=== PATIENT | female | born 1950 | race Caucasian/White ===

== ENCOUNTER → 2018-07-09 17:25 | Emergency (ER) | payer MEDICARE, OTHER ==
[~2018-07-09 17:25] MED LIST: Hydrochlorothiazide TAB* 25 MG PO ONE; cloNIDine TAB* 0.1 MG PO ONE
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
[2018-07-09 20:21] VITALS: BP 216/84
--- NOTE | 2018-07-10 07:55 | RAD ---
Indication: Right knee pain. 4 views of the right knee are reviewed. Degenerative changes of the patellofemoral joint is noted. Joint spaces all well-preserved. No fracture is noted. IMPRESSION: Unremarkable right knee. R0
--- NOTE | 2018-07-10 16:37 | RAD ---
Indication: Left knee pain. 4 views of left knee demonstrates no fracture or dislocation. No other bone or joint abnormalities identified. No abnormal effusion is noted. IMPRESSION: No fracture of the left knee is noted. R0
== END | disposition home or self-care (01) ==
LOC: ED 17:25
DX: M54.2 Cervicalgia (principal); M25.562 Pain in left knee; M25.561 Pain in right knee; R07.89 Other chest pain; M54.5 Low back pain; I10 Essential (primary) hypertension; Z87.891 Personal history of nicotine dependence
CPT/HCPCS: 71250; 72125; 99282; A9270-GY

== ENCOUNTER 2018-08-05 15:49 | Emergency (ER) | payer MEDICARE ==
[2018-08-05] MEDS ORDERED: NS 0.9% 1000 ML* 1,000 ML IV ONE (17:10)
[2018-08-05] MEDS ORDERED: Ondansetron ODT TAB* 4 MG PO ONE (17:10)
[2018-08-05 17:23] LABS: ABS Basophils 0.1 10^3/ul (0-0.2); ABS Eosinophils 0 10^3/ul (0-0.6); ABS Lymphocytes 1.6 10^3/ul (1.0-4.8); ABS Monocytes 1.4 10^3/ul (0-0.8); ABS Neutrophils 17.8 10^3/ul (1.5-7.7); ABS Nucleated RBC 0 10^3/ul; Eosinophil % 0 %; Hematocrit 36 % (35-47); Hemoglobin 12.2 g/dl (12.0-16.0); Lymphocyte % 7.5 %; Mean Corpuscular HGB Conc 34 g/dl (31-36); Mean Corpuscular Hemoglobin 32 pg (27-31); Mean Corpuscular Volume 93 fL (80-97); Mean Platelet Volume 8.3 fL (7.4-10.4); Nucleated Red Blood Cells % 0; Platelet Count 211 10^3/ul (150-450); Red Blood Count 3.88 10^6/ul (4.00-5.40); Red Cell Distribution Width 14 % (10.5-15); White Blood Count 20.8 10^3/ul (3.5-10.8)
[2018-08-05 17:46] LABS: EGFR Non-African American 41.7 (>60)
[2018-08-05] MEDS ORDERED: Iodixanol* (CONTRAST) 320 MG/ML 100 ML SDV IV ONE (19:22)
[2018-08-05 19:29] LABS: Urine Appearance Cloudy; Urine Blood 2+ (Negative); Urine Color Amber; Urine Ketones Negative (Negative); Urine Protein 1+(30 mg/dL) (Negative); Urine Red Blood Cell 3+(>10/hpf) (Absent); Urine Specific Gravity 1.018 (1.010-1.030); Urine Urobilinogen Negative (Negative); Urine White Blood Cell 3+(>20/hpf) (Absent)
[2018-08-05 20:52] VITALS: BP 157/60
[2018-08-05] MEDS ORDERED: Levofloxacin TAB* 250 MG PO ONE (20:58)
--- NOTE | 2018-08-05 20:58 | ED ---
HPI Febrile Illness - HPI Summary HPI Summary: Patient complains of bilateral lower back pain, bilateral lower abdominal pain, mild nausea, decreased appetite, dizziness, night sweats, mild cough, mild nasal congestion 3 days. Denies headache, sore throat, ear pain, CP, SOB, V/D , change in urine, change in BM, vaginal symptoms. Medical history is HTN, DM. Abdominal surgical history is cholecystectomy. - History of Current Complaint Chief Complaint: EDGeneral Time Seen by Provider: 08/05/18 16:38 Hx Obtained From: Patient Onset/Duration: Started Days Ago Timing: Constant Initial Severity: Severe Current Severity: Severe Pain Intensity: 8 Pain Scale Used: 0-10 Numeric Associated Signs and Symptoms: Dizziness, Nausea, Night Sweats - Allergy/Home Medications Allergies/Adverse Reactions: Allergies Allergy/AdvReac Type Severity Reaction Status Date / Time No Known Allergies Allergy Verified 07/09/18 17:32 PMH/Surg Hx/FS Hx/Imm Hx Endocrine/Hematology History: Denies: Hx Anticoagulant Therapy, Hx Diabetes, Hx Thyroid Disease Cardiovascular History: Denies: Hx Hypertension Respiratory History: Denies: Hx Asthma, Hx Chronic Obstructive Pulmonary Disease (COPD) GI History: Denies: Hx Ulcer History: Denies: Hx Renal Disease - Cancer History Hx Chemotherapy: No Hx Radiation Therapy: No - Surgical History Surgery Procedure, Year, and Place: 2002 cholecystectomy Infectious Disease History: No Infectious Disease History: Denies: Hx Clostridium Difficile, Hx Hepatitis, Hx Human Immunodeficiency Virus (HIV), Hx of Known/Suspected MRSA, Hx Shingles, Hx Tuberculosis, Traveled Outside the [place] in Last 30 Days - Family History Known Family History: Positive: Hypertension - Social History Alcohol Use: None Substance Use Type: Reports: None Smoking Status (MU): Former Smoker Review of Systems Positive: Fever Eyes: Negative ENT: Negative Cardiovascular: Negative Respiratory: Negative Positive: Abdominal Pain, Nausea Genitourinary: Negative Musculoskeletal: Negative Skin: Negative Neurological: Negative Psychological: Normal All Other Systems Reviewed And Are Negative: Yes Physical Exam - Summary Physical Exam Summary: Abdomen diffusely tender mildly. Back nontender to palpation bilaterally. No CVA tenderness. No paraspinal or spinal tenderness. Physical exam unremarkable. Triage Information Reviewed: Yes Vital Signs On Initial Exam: Initial Vitals Temp Pulse Resp BP Pulse Ox 99.4 F 91 16 153/59 95 08/05/18 15:52 08/05/18 15:52 08/05/18 15:52 08/05/18 15:52 08/05/18 15:52 Vital Signs Reviewed: Yes Appearance: Positive: Well-Appearing Skin: Positive: Warm Head/Face: Positive: Normal Head/Face Inspection Eyes: Positive: Normal Neck: Positive: Supple Respiratory/Lung Sounds: Positive: Clear to Auscultation Cardiovascular: Positive: Normal Abdomen Description: Positive: Other: Musculoskeletal: Positive: Normal Neurological: Positive: Normal Psychiatric: Positive: Normal AVPU Assessment: Alert - [place] Coma Scale Best Eye Response: 4 - Spontaneous Best Motor Response: 6 - Obeys Commands Best Verbal Response: 5 - Oriented Coma Scale Total: 15 Diagnostics - Vital Signs Vital Signs Temp Pulse Resp BP Pulse Ox 08/05/18 20:51 98.9 F 75 16 157/60 97 08/05/18 19:45 98.7 F 78 18 145/76 98 08/05/18 15:52 99.4 F 91 16 153/59 95 - Laboratory Lab Results: Lab Results 08/05/18 08/05/18 08/05/18 Range/Units 17:14 17:14 17:14 WBC 20.8 H (3.5-10.8) 10^3/ul RBC 3.88 L (4.00-5.40) 10^6/ul Hgb 12.2 (12.0-16.0) g/dl Hct 36 (35-47) % MCV 93 (80-97) fL MCH 32 H (27-31) pg MCHC 34 (31-36) g/dl RDW 14 (10.5-15) % Plt Count 211 (150-450) 10^3/ul MPV 8.3 (7.4-10.4) fL Neut % (Auto) 85.4 % Lymph % (Auto) 7.5 % [place] % (Auto) 6.7 % Eos % (Auto) 0 % Baso % (Auto) 0.4 % Absolute Neuts (auto) 17.8 H (1.5-7.7) 10^3/ul Absolute Lymphs (auto) 1.6 (1.0-4.8) 10^3/ul Absolute Monos (auto) 1.4 H (0-0.8) 10^3/ul Absolute Eos (auto) 0 (0-0.6) 10^3/ul Absolute Basos (auto) 0.1 (0-0.2) 10^3/ul Absolute Nucleated RBC 0 10^3/ul Nucleated RBC % 0 Sodium 132 L (135-145) mmol/L Potassium 3.5 (3.5-5.0) mmol/L Chloride 101 (101-111) mmol/L Carbon Dioxide 24 (22-32) mmol/L Anion Gap 7 (2-11) mmol/L BUN 31 H (6-24) mg/dL Creatinine 1.28 H (0.51-0.95) mg/dL Est GFR ( Amer) 50.5 (>60) Est GFR (Non-Af Amer) 41.7 (>60) BUN/Creatinine Ratio 24.2 H (8-20) Glucose 133 H (70-100) mg/dL Lactic Acid 1.5 (0.5-2.0) mmol/L Calcium 8.9 (8.6-10.3) mg/dL Total Bilirubin 0.50 (0.2-1.0) mg/dL AST 19 (13-39) U/L ALT 19 (7-52) U/L Alkaline Phosphatase 76 (34-104) U/L C-Reactive Protein 224.15 H (<8.01) mg/L Total Protein 8.2 (6.4-8.9) g/dL Albumin 3.9 (3.2-5.2) g/dL Globulin 4.3 H (2-4) g/dL Albumin/Globulin Ratio 0.9 L (1-3) Lipase 19 (11.0-82.0) U/L Urine Color Urine Appearance Urine pH (5-9) Ur Specific Whick (1.010-1.030) Urine Protein (Negative) Urine Ketones (Negative) Urine Blood (Negative) Urine Nitrate (Negative) Urine Bilirubin (Negative) Urine Urobilinogen (Negative) Ur Leukocyte Esterase (Negative) Urine WBC (Auto) (Absent) Urine RBC (Auto) (Absent) Ur Squamous Epith Cells (Absent) Ur Renal Epithelial Cell (Absent) Urine Bacteria (Absent) Hyaline Casts (Absent) Urine Glucose (Negative) 08/05/18 Range/Units 18:39 WBC (3.5-10.8) 10^3/ul RBC (4.00-5.40) 10^6/ul Hgb (12.0-16.0) g/dl Hct (35-47) % MCV (80-97) fL MCH (27-31) pg MCHC (31-36) g/dl RDW (10.5-15) % Plt Count (150-450) 10^3/ul MPV (7.4-10.4) fL Neut % (Auto) % Lymph % (Auto) % [place] % (Auto) % Eos % (Auto) % Baso % (Auto) % Absolute Neuts (auto) (1.5-7.7) 10^3/ul Absolute Lymphs (auto) (1.0-4.8) 10^3/ul Absolute Monos (auto) (0-0.8) 10^3/ul Absolute Eos (auto) (0-0.6) 10^3/ul Absolute Basos (auto) (0-0.2) 10^3/ul Absolute Nucleated RBC 10^3/ul Nucleated RBC % Sodium (135-145) mmol/L Potassium (3.5-5.0) mmol/L Chloride (101-111) mmol/L Carbon Dioxide (22-32) mmol/L Anion Gap (2-11) mmol/L BUN (6-24) mg/dL Creatinine (0.51-0.95) mg/dL Est GFR ( Amer) (>60) Est GFR (Non-Af Amer) (>60) BUN/Creatinine Ratio (8-20) Glucose (70-100) mg/dL Lactic Acid (0.5-2.0) mmol/L Calcium (8.6-10.3) mg/dL Total Bilirubin (0.2-1.0) mg/dL AST (13-39) U/L ALT (7-52) U/L Alkaline Phosphatase (34-104) U/L C-Reactive Protein (<8.01) mg/L Total Protein (6.4-8.9) g/dL Albumin (3.2-5.2) g/dL Globulin (2-4) g/dL Albumin/Globulin Ratio (1-3) Lipase (11.0-82.0) U/L Urine Color [place] Urine Appearance Cloudy Urine pH 5.0 (5-9) Ur Specific Whick 1.018 (1.010-1.030) Urine Protein 1+(30 mg/dl) A (Negative) Urine Ketones Negative (Negative) Urine Blood 2+ A (Negative) Urine Nitrate Negative (Negative) Urine Bilirubin Negative (Negative) Urine Urobilinogen Negative (Negative) Ur Leukocyte Esterase 3+ A (Negative) Urine WBC (Auto) 3+(>20/hpf) A (Absent) Urine RBC (Auto) 3+(>10/hpf) A (Absent) Ur Squamous Epith Cells Present A (Absent) Ur Renal Epithelial Cell Present A (Absent) Urine Bacteria Absent (Absent) Hyaline Casts Present A (Absent) Urine Glucose 1+(50 mg/dl) A (Negative) Result Diagrams: 08/05/18 17:14 08/05/18 17:14 Lab Statement: Any lab studies that have been ordered have been reviewed, and results considered in the medical decision making process. - CT abdomen pelvis CT Interpretation Completed By: Radiologist - Negative Course/Dx - Course Course Of Treatment: Patient complains of bilateral lower back pain, bilateral lower abdominal pain, mild nausea, decreased appetite, dizziness, night sweats, mild cough, mild nasal congestion 3 days. Denies headache, sore throat, ear pain, CP, SOB, V/D, change in urine, change in BM, vaginal symptoms. Medical history is HTN, DM. Abdominal surgical history is cholecystectomy. Physical exam:Abdomen diffusely tender mildly. Back nontender to palpation bilaterally. No CVA tenderness. No paraspinal or spinal tenderness. Physical exam unremarkable. Vital signs within normal limits. WBC 20. CRP 224. Lactic normal. CT abdomen and pelvis positive for right middle lobe infiltrate. Possibly asymptomatic UTI which will be cultured. Results of culture pending. Patient started on Levaquin here in the ED, Rx for same. - Diagnoses Provider Diagnoses: Right middle lobe pneumonia Discharge - Sign-Out/Discharge Documenting (check all that apply): Patient Departure - Discharge Plan Condition: Stable Disposition: HOME Prescriptions: Levofloxacin TAB* [Levaquin TAB*] 750 mg PO DAILY 7 Days #7 tab Patient Education Materials: Bacterial Pneumonia (ED), Pneumonia (ED) Forms: *Work Release Referrals: No Primary Care Phys,NOPCP [Primary Care Provider] - [facility] [Outside] Additional Instructions: Take antibiotics as directed. Follow-up with primary care. Return to the ED for any new or worsening symptoms. - Billing Disposition and Condition Condition: STABLE Disposition: Home
== END 2018-08-05 21:13 | disposition home or self-care (01) ==
LOC: ED 15:49
DX: J18.9 Pneumonia, unspecified organism (principal); Z87.891 Personal history of nicotine dependence
CPT/HCPCS: 36415; 74177; 80053; 81003; 81015; 83605; 83690; 85025; 86140; 87086; 96361; 96374; 99282; A9270-GY; Q9967

== ENCOUNTER 2019-07-28 07:02 | Inpatient (IN) | payer MEDICARE ==
[~2019-07-28 07:02] MED LIST changes: +Buffered Lidocaine 1% SYRIN* 1 ML/SYRINGE INTRADERM ONE; +Famotidine IV* 10 MG/ML 2 ML (20 mg) IV ONE; -Hydrochlorothiazide TAB* 25 MG PO ONE; +Lactated Ringers 1000 ML Bag* 1,000 ML IV SCH; -cloNIDine TAB* 0.1 MG PO ONE
[2019-07-28] MEDS ORDERED: ceFAZolin 2 GM in NS PREMIX(*) 2 GM/100 ML BAG IVPB ONE (07:36)
[2019-07-28] MEDS ORDERED: Famotidine IV* 10 MG/ML 2 ML (20 mg) ONE (07:36)
[2019-07-28] MEDS ORDERED: Bupivacaine 0.5%* 50 ML MDV VIAL ONE (07:37)
[2019-07-28] MEDS ORDERED: fentaNYL* 50 MCG/ML 2 ML VIAL (100 MCG VIAL) ONE ×2 (08:37→09:43)
[2019-07-28] MEDS ORDERED: Midazolam* 1 MG/ML 5 ML VIAL (5 MG) ONE (08:37)
[2019-07-28] MEDS ORDERED: ceFOXitin 2 GM IVPREMIX* 2 GM/50 ML BAG ONE (08:39)
[2019-07-28] MEDS ORDERED: Rocuronium* 10 MG/ML VIAL ONE ×2 (08:52→10:28)
[2019-07-28] MEDS ORDERED: Ondansetron INJ* 2 MG/ML VIAL ONE (09:34)
[2019-07-28] MEDS ORDERED: Ketorolac INJ* 30 MG/ML 1 ML VIAL ONE (09:34)
[2019-07-28] MEDS ORDERED: Lidocaine 2% PF * 5 ML VIAL ONE (09:34)
[2019-07-28] MEDS ORDERED: DiMENhydriNATE IV* 50 MG/ML VIAL ONE (09:34)
[2019-07-28] MEDS ORDERED: Dexamethasone IV* 4 MG/ML 1 ML (4 MG) ONE (09:34)
[2019-07-28] MEDS ORDERED: Propofol* 10 MG/ML 20 ML BTL ONE (09:34)
[2019-07-28] MEDS ORDERED: Succinylcholine* 20 MG/ML 10 ML VIAL ONE (09:34)
[2019-07-28] MEDS ORDERED: HYDROmorphone INJ1* 1 MG/ML SYRINGE ONE (11:41)
[2019-07-28] MEDS ORDERED: HYDROmorphone INJ1* 1 MG/ML SYRINGE IV PRN (12:36)
[2019-07-28] MEDS ORDERED: DiMENhydriNATE IV* 50 MG/ML VIAL IV PUSH PRN (12:36)
[2019-07-28] MEDS ORDERED: Acetaminophen IV 1GM/100ML * 1,000 MG/100 ML VIAL IVPB ONE (12:36)
[2019-07-28] MEDS ORDERED: Naloxone* 0.4 MG/ML 1 ML VIAL IV PRN (12:36)
[2019-07-28] MEDS ORDERED: HYDROmorphone INJ* 0.5 MG/0.5 ML SYRINGE IV SLOW PU PRN (14:50)
[2019-07-28] MEDS ORDERED: Ondansetron INJ* 2 MG/ML VIAL IV PRN (14:50)
[2019-07-28] MEDS ORDERED: Acetaminophen TAB* 325 MG PO PRN (14:50)
--- NOTE | 2019-07-28 14:50 | BRIEFOPN ---
Brief Operative/Procedure Note - Operation Details Pre-Op Diagnosis: sigmoid colon polyp Post-Op Diagnosis: same Procedures: laparoscopic robotic sigmoid colectomy w/ intra-operative rigid sigmoidoscopy and primary EEA anastomosis Surgeon(s)/Proceduralists: Camilo. Asst: MICHAEL Petty; DARIUSZ Quiles; MD Jonny Anesthesia: GET Estimated Blood Loss: < 50 ml Findings: as above; initial specimen did not contain lesion, requiring intra-op rigid sigmoidoscopy; subsequent resection did contain lesion with grossly clear distal staple line Specimen(s)/Culture(s) Description: portion of sigmoid colon; additional portion of distal sigmoid colon Complications: none
[2019-07-28] MEDS ORDERED: Sugammadex * 500 MG/5 ML VIAL IV PUSH ONE (14:52)
[2019-07-28] MEDS ORDERED: Acetaminophen IV 1GM/100ML * 100 ML ONE (15:17)
[2019-07-28] MEDS: Ketorolac INJ* 30 MG/ML 1 ML VIAL IV SCH (22:44)
[2019-07-28] MEDS: Heparin VIAL(*) 5000 UNITS/ML VIAL (FIVE THOUSAND) SUBCUT SCH (22:44)
--- NOTE | 2019-07-28 23:29 | OP ---
DATE OF OPERATION: 07/28/19 - ROOM #335 DATE OF : 54 ATTENDING SURGEON: Jourdan Page MD CATERING TRUCK DRIVER: Stepan Fuller MD SECOND AUTOMOTIVE WARRANTY ADMINISTRATOR: MICHAEL Hoover THIRD AUTOMOTIVE WARRANTY ADMINISTRATOR: DARIUSZ Cowan PRE-OP DIAGNOSIS: Sigmoid polyp/lesion. POST-OP DIAGNOSIS: Sigmoid polyp/lesion. OPERATIVE PROCEDURE: Robotic sigmoid colectomy, stapled EEA low anterior anastomosis/low anterior resection. INDICATIONS FOR PROCEDURE: Sigmoid polyp/lesion noted on colonoscopy. Risks of surgery included, but not limited to bleeding, infection, injury to intraabdominal contents including the bowel, ureter, other intraabdominal contents, anastomotic leak. Explained to the the patient who seemed to understand and agreed to the procedure and all questions were answered. DESCRIPTION OF PROCEDURE: The patient was taken to the operating room and placed supine. Preoperative antibiotics were given. After the successful induction of general endotracheal anesthesia, the abdomen was prepped and draped in sterile fashion. A time-out was performed indicating correct patient and correct procedure. A 5 mm trocar was placed under direct visualization with a camera in the subxiphoid position, and under direct visualization, pneumoperitoneum was achieved to 15 mmHg. The camera was placed in the abdomen. The abdomen was scanned. There was no obvious injury from trocar placement. Two 8 mm trocars were placed in a line towards the right lower quadrant under direct visualization of the camera, both robotic, and a 12 mm robotic trocar was placed in the right lower quadrant a few fingerbreadths off the iliac crest. A fifth port, assist port, 8 mm was placed on the right side of the abdomen. All were placed under direct visualization of camera. The 5 mm trocar was then replaced with an 8 mm robotic trocar. She was placed in the Trendelenburg position, tilted slightly towards her right. The robot was brought in and docked. The sigmoid was noted heading down into the pelvis. The colon was mobilized medially down towards the rectum since no ink was noted until right at the sigmoid and rectal junction. The rectum was mobilized and the proximal colon was mobilized and isolated and divided above the inked area. Mesorectum was then divided heading down into the rectum and the rectum was taken below this inked area and no other inked area was noted. Specimen was removed after an incision was made over her old /Pfannenstiel incision and carried down to the subcutaneous tissue. The fascia was opened, the muscle was spread at the midline in between the rectus and the peritoneal cavity that was open. The specimen was removed and opened at side table and no lesion was noted. A rigid sigmoidoscope was then performed showing the lesion distal to this anastomosis. No obvious ink was noted distal to the lesion. Dr. Fuller was called to assist in identifying the lesion robotically. The rectum was further dissected so that adequate margins could be made. Another portion of the rectum was then divided. It was placed into an Endobag and removed through this Pfannenstiel incision where a GelPort had been placed with a wound protector. This specimen was opened and revealed good margin along with the lesion in question. The GelPort was reapplied. Pneumoperitoneum was once again achieved to 12 mmHg. An instrument was placed through the GelPort and the distal colon was gently grasped and brought up through the GelPort. The GelPort was removed and the anvil was placed in the proximal colon by making an enterotomy just on top of the suture line placing the anvil inside and securing it in place with the pursestring suture. It was placed back in the abdomen and then a stapled EEA 25 mm anastomosis was performed by Dr. Fuller assisting on the rectal part of the procedure. Saline was placed in the pelvis and DARIUSZ Cowan, was then used to insufflate air into the rectum using the rigid sigmoidoscope to test the anastomosis and there was no air leak. The abdomen was scanned. There was no obvious injury from the procedure noted to small bowel or other. During the case prior to the initial resection, Firefly was used to evaluate good blood flow to the rectum and proximal colon. Then, Firefly was used again prior to re-excising more rectum. The Firefly was used a third time to evaluate the anastomosis after it was put together. Also a good blood flow to the proximal distal ends of the anastomosis and specimens. The pelvis was irrigated with saline aspirated dry. EBL less than 50 cc for the case. The patient tolerated the procedure well. The Pfannenstiel incision was closed with 3-0 Vicryl at the peritoneum and the muscle, 0 PDS at the fascia. The skin was closed with Monocryl and glue at all port sites after the ports were removed. The pneumoperitoneum was completely released from the abdomen. The patient was extubated and taken to recovery room in stable condition. [id number]/[facility] #: [id number] MTDMaria Ines
[2019-07-29] MEDS: Lactated Ringers 1000 ML Bag* 1,000 ML IV SCH ×3 (00:43→16:55)
[2019-07-29] MEDS: Ketorolac INJ* 30 MG/ML 1 ML VIAL IV SCH ×4 (05:12→22:33)
[2019-07-29] MEDS: Heparin VIAL(*) 5000 UNITS/ML VIAL (FIVE THOUSAND) SUBCUT SCH ×3 (05:12→22:33)
[2019-07-29] MEDS: amLODIPine TAB* 5 MG PO SCH (09:05)
--- NOTE | 2019-07-29 10:10 | PN ---
Progress Note - Progress Note Date of Service: 07/29/19 SOAP: Subjective: [] Radha is a pleasant 69 yo female POD #1 s/p laparoscopic robotic sigmoid colectomy. Pt tells me she is feeling well today. She is passing flatus, no BM. States she has not ambulated since operation. Khan in place, draining non- bloody, yellow urine. Tolerating clear fluids. No nausea or vomiting. Reports diffuse mild abdominal tenderness. She denies chest pain, cough, SOB. Objective: [] Vital Signs - 12 hr Temp Pulse Resp BP Pulse Ox 07/29/19 08:00 16 96 07/29/19 07:26 98.2 F 65 16 132/55 96 07/29/19 03:47 98.1 F 71 16 140/57 97 07/28/19 23:55 94 07/28/19 23:49 98.2 F 68 20 144/55 94 Intake & Output 07/28/19 07/29/19 07/29/19 22:59 06:59 14:59 Intake Total 3400 1186 980 Output Total 1775 600 0 Balance 1625 586 980 Examination: General: NAD, resting in bed comfortably. Cardiovascular: Regular rate and rhythm. No murmur, rubs or gallops. Pulmonary: CTA throughout, no wheezes, rails or rhonchi. Abdomen: Positive bowel sounds, soft, mildly distended. Moderate diffuse pain to palpation. Peripheral vascular: Calves soft, non-tender bilaterally. No peripheral edema. Skin: Incision sites clean, dry and intact. No rash, erythema, edema, warmth or signs of infection. Assessment: [] POD #1 s/p laparoscopic robotic sigmoid colectomy Plan: [] Advance diet as tolerated. Encourage ambulation as tolerated. <Jai Bray S - Last Filed: 07/29/19 11:20> - Progress Note SOAP: Subjective: NAD [] Objective: Vital Signs Temp 97.9 F 07/29/19 11:33 Pulse 72 07/29/19 11:33 Resp 16 07/29/19 11:33 BP 140/59 07/29/19 11:33 Pulse Ox 93 07/29/19 11:33 Intake & Output 07/28/19 07/29/19 07/29/19 18:59 06:59 18:59 Intake Total 2800 1786 980 Output Total 850 1525 1550 Balance 1950 261 -570 Weight 156 lb Intake: IV Fluids 2800 986 980 LR 2800 986 980 Oral 800 Output: Khan 800 1525 1550 Estimated Blood Loss 50 Other: # Bowel Movements 0 Gen: NAD Abd: Incisions C/D/I RLQ + tender to palp, hypo BS's Calves soft, non tender [] Assessment: POD 1 S/P Robotic sigmoid colectomy. - Flatus [] Plan: encouraged her to Ambulate, use IS, DVT prophylaxis. increasing diet with flatus [] <John Rowan - Last Filed: 07/29/19 12:35>
[2019-07-30] MEDS: Lactated Ringers 1000 ML Bag* 1,000 ML IV SCH ×3 (01:16→19:15)
[2019-07-30] MEDS: Ketorolac INJ* 30 MG/ML 1 ML VIAL IV SCH ×3 (04:31→16:40)
[2019-07-30] MEDS: Heparin VIAL(*) 5000 UNITS/ML VIAL (FIVE THOUSAND) SUBCUT SCH ×3 (05:32→22:05)
[2019-07-30 06:01] LABS: ABS Basophils 0.1 10^3/ul (0-0.2); ABS Eosinophils 0.5 10^3/ul (0-0.6); ABS Lymphocytes 2.4 10^3/ul (1.0-4.8); ABS Monocytes 0.7 10^3/ul (0-0.8); ABS Neutrophils 4.9 10^3/ul (1.5-7.7); Eosinophil % 5.6 %; Hematocrit 33 % (35-47); Hemoglobin 11.5 g/dL (12.0-16.0); Lymphocyte % 28.2 %; Mean Corpuscular HGB Conc 34 g/dL (31-36); Mean Corpuscular Hemoglobin 32 pg (27-31); Mean Corpuscular Volume 92 fL (80-97); Mean Platelet Volume 7.9 fL (7.4-10.4); Platelet Count 211 10^3/uL (150-450); Red Blood Count 3.64 10^6 /uL (3.70-4.87); Red Cell Distribution Width 14 % (10-15); White Blood Count 8.6 10^3/uL (3.5-10.8)
[2019-07-30 06:39] LABS: BUN/Creatinine Ratio 13.6 (8-20); Calcium 8.4 mg/dL (8.6-10.3); EGFR African American 108.1 (>60); EGFR Non-African American 89.3 (>60)
[2019-07-30] MEDS: amLODIPine TAB* 5 MG PO SCH (08:06)
--- NOTE | 2019-07-30 11:05 | PN ---
Progress Note - Progress Note Date of Service: 07/30/19 SOAP: Subjective:NAD, + Flatus - BM tolerating fulls, ambulating well [] Objective: Vital Signs Temp 98.3 F 07/30/19 08:26 Pulse 64 07/30/19 08:26 Resp 18 07/30/19 08:26 BP 145/54 07/30/19 08:26 Pulse Ox 98 07/30/19 08:26 Intake & Output 07/29/19 07/30/19 07/30/19 18:59 06:59 18:59 Intake Total 1845 2428 1340 Output Total 1900 1300 500 Balance -55 1128 840 Intake: IV Fluids 980 1328 980 LR 980 1328 980 IVPB 665 LR 665 Oral 200 1100 360 Output: Urine 350 1300 500 Khan 1550 Other: Estimated Void Medium Laboratory Tests 07/30/19 07/30/19 05:47 05:47 WBC 8.6 Potassium 3.0 L PEX: GEN: NAD Chest:CTA CVS: RRR ABD: soft, incisional tenderness, incisions C/D/I + BS's Ext: calves soft non tender [] Assessment: POD 2 S/P laparoscopic robotic sigmoid colectomy w/ intra- operative rigid sigmoidoscopy and primary EEA anastomosis for a sigmoid polyp. + Flatus, tolerating fulls [] Plan: Advance diet to regular, IS, DVT prophylaxis, Encouraged Deep Breathing. OOB Ambuate, Replace K+. Above D/W Dr Page []
[2019-07-30] MEDS ORDERED: Potassium Chlor TAB* 20 MEQ TAB.ER PO ONE (12:24)
[2019-07-30] MEDS ORDERED: KCL 20 MEQ/100 ML IVPREMIX* 20 MEQ/100 ML BAG IV ONE (12:45)
[2019-07-31] MEDS: Lactated Ringers 1000 ML Bag* 1,000 ML IV SCH (03:23)
[2019-07-31 05:40] LABS: BUN/Creatinine Ratio 13.3 (8-20); Calcium 8.7 mg/dL (8.6-10.3); EGFR African American 93.3 (>60); EGFR Non-African American 77.1 (>60); Potassium 3.4 mmol/L (3.5-5.0)
[2019-07-31] MEDS: Heparin VIAL(*) 5000 UNITS/ML VIAL (FIVE THOUSAND) SUBCUT SCH (05:40)
[2019-07-31] MEDS ORDERED: Potassium Chlor TAB* 20 MEQ TAB.ER PO ONE (08:30)
[2019-07-31] MEDS: amLODIPine TAB* 5 MG PO SCH (08:48)
--- NOTE | 2019-07-31 08:48 | PN ---
Progress Note - Progress Note Date of Service: 07/31/19 SOAP: Subjective:tolerating regular diet;passing flatus;ambulating;using inspiron; wants to go home [] Objective: Vital Signs Temp 97.6 F 07/31/19 04:34 Pulse 75 07/31/19 04:34 Resp 20 07/31/19 08:00 BP 134/58 07/31/19 04:34 Pulse Ox 99 07/31/19 08:00 Intake & Output 07/30/19 07/31/19 07/31/19 18:59 06:59 18:59 Intake Total 1820 2049 Output Total 2700 1600 1400 Balance -880 449 -1400 Intake: IV Fluids 980 2049 LR 980 1949 kcl 100 Oral 840 0 Output: Urine 2700 1600 1400 Other: Estimated Void Medium Medium # Bowel Movements 1 Estimated Stool Amount Small lungs:clear bilat;heart:RRR,no murmur;abd:+bs,soft,nondistended;all incisions c/ d/i with skin glue,no erythema;appropriate tenderness;ext:nontender calves [] Assessment:POD#3 s/p laparoscopic robotic sigmoid colectomy with primary anastamosis for sigmoid polyp,stable for discharge [] Plan:Discharge home today,dietary and activity guidelines reviewed,medications and pain management reviewed;K+ repleted;office visit 08/06/19 []
--- NOTE | 2019-07-31 09:52 | DS ---
AMENDED REPORT NOW NCLUDES DESIGNATED COSIGNER CC: Dr. Fuller; Dr. Rosen * DISCHARGE SUMMARY: DATE OF ADMISSION: 07/28/19 DATE OF DISCHARGE: 07/31/19 ATTENDING SURGEON: Jourdan Page MD.* (DICTATED BY PRABHU LOCKE NP) HOSPITAL COURSE: Please refer to admission history and physical for admission details. The patient was taken to the operating room on 07/28/19, and underwent laparoscopic robotic sigmoid colectomy with intraoperative rigid sigmoidoscopy and primary end-to-end anastomosis for a sigmoid polyp. She has had an uneventful postoperative course and required minimal pain medication and has been able to gradually advance her diet and now is tolerating regular foods. She has been using her Inspiron and ambulating in the halls. She was seen this morning by myself and has met criteria for discharge. She is passing flatus and has had a small bowel movement. PHYSICAL EXAMINATION: General: Well appearing, in no acute distress. Vital signs are stable, and she is afebrile. O2 saturation on room air is 99%. Lungs : Breath sounds bilaterally clear and equal. Heart: Regular rate and rhythm. No murmurs or rubs appreciated. Abdomen: Active bowel sounds, soft and nondistended. Appropriate incisional tenderness. All of the incisions are healing and intact with skin glue; the incisions are clean and dry and there is no surrounding erythema. Extremities are warm without edema or calf tenderness. Skin is warm and dry. CONDITION: Stable. IMPRESSION: Status post laparoscopic robotic sigmoid colectomy with primary end -to-end anastomosis, doing extremely well and meeting discharge criteria. PLAN: Discharged home today. Instructions were reviewed with the patient. She has a followup office visit with Dr. Page on 08/06/19; all of her medications were reviewed. Dietary guidelines were reviewed, and she will have a prescription for oxycodone and acetaminophen 5/325 mg tablets as needed for stronger pain and she may use over- the-counter Tylenol for mild pain. Her potassium has been corrected from 3.0 to 3.4, and she will receive another dose of oral 20 mEq of potassium today. TIME SPENT: Thirty minutes with greater than 50% in [id number] patient education and coordination of care. PRABHU LOCKE, RESIDENTIAL YOUTH COUNSELOR [id number]/[facility] #: [id number] ERICA
[2019-07-31] MEDS ORDERED: Pneumococcal *Vac Polyvalent 0.5 ML VIAL IM ONE (10:00)
[2019-07-31] MEDS ORDERED: Influenza VAC *QUAD* 2019-20* 0.5 ML SYRINGE IM ONE (10:00)
[2019-07-31 10:30] VITALS: BP 148/55
== END 2019-07-31 10:48 | disposition home health service (06) | DRG 331 ==
LOC: AA 07:02 → EDSTATUS 09:45 → SSU 14:50
PROVIDERS: ADMIT Surgery; ATTEND Surgery
PROC: 8E0W4CZ Robotic Assisted Procedure of Trunk Region, Percutaneous Endoscopic Approach (ICD-10-PCS; 2019-07-28)
PROC: 0DBN4ZZ Excision of Sigmoid Colon, Percutaneous Endoscopic Approach (ICD-10-PCS; principal; 2019-07-28 08:30)
DX: D12.5 Benign neoplasm of sigmoid colon (principal); I10 Essential (primary) hypertension; M19.90 Unspecified osteoarthritis, unspecified site; E78.5 Hyperlipidemia, unspecified; Z82.3 Family history of stroke; Z90.49 Acquired absence of other specified parts of digestive tract; Z87.891 Personal history of nicotine dependence; Z23 Encounter for immunization
CPT/HCPCS: 36415; 80048; 85025; 88307; 90686; 90732; A9270-GY; J0330; J0690; J0694; J1100; J1170; J1240; J1644; J1885; J2250; J2405; J2704; J3010; J3480; J3490

== ENCOUNTER 2019-11-11 09:37 | Day surgery (SDC) | payer MEDICARE ==
[~2019-11-11 09:37] MED LIST changes: +Acetaminophen TAB* 325 MG PO PRN; -Famotidine IV* 10 MG/ML 2 ML (20 mg) IV ONE; -Lactated Ringers 1000 ML Bag* 1,000 ML IV SCH; +Phenylephr/Ketorolac 1%/0.3% OPH DROP BTL ONE; +Trypan Blue 0.06% SOL* 0.5 ML BTL ONE
[2019-11-11] MEDS ORDERED: Midazolam* 1 MG/ML 2 ML VIAL (2 MG) ONE (10:49)
[2019-11-11] MEDS ORDERED: fentaNYL* 50 MCG/ML 2 ML VIAL (100 MCG VIAL) ONE (10:49)
[2019-11-11 12:13] VITALS: BP 139/64
[2019-11-11] MEDS ORDERED: Cyclopentolate 1% OPTH.SOL* 2 ML BTL ONE ×2 (14:57→14:58)
[2019-11-11] MEDS ORDERED: Lidocaine 1% MPF ** 5 ML VIAL ONE (14:58)
[2019-11-11] MEDS ORDERED: Neomycin/Polymy/Dex OPHTH.OIN* 3.5 GM ONE (14:58)
[2019-11-11] MEDS ORDERED: Ketorolac 0.5% OPHTH (NF) 0.5 % 5 ML BTL ONE (14:58)
[2019-11-11] MEDS ORDERED: Phenylephrine OPHTH SOL 2.5%* 2 ML ONE (14:58)
[2019-11-11] MEDS ORDERED: Tropicamide 1% OPTH.SOL* BTL ONE (14:58)
[2019-11-11] MEDS ORDERED: Tetracaine 0.5% OPTH.SOL 4 ML* 1 DROP BTL ONE (14:58)
--- NOTE | 2019-11-12 | OP ---
DATE OF OPERATION: 11/11/19 - [facility] DATE OF : 54 SURGEON: Andry Zazueta MD SPRAY GUN STRIPER: None. ANESTHESIA: Topical with intravenous sedation. PRE-OP DIAGNOSIS: Dense white cataract, left eye. POST-OP DIAGNOSIS: Dense white cataract, left eye. OPERATIVE PROCEDURE: Phacoemulsification and cataract extraction with posterior chamber intraocular lens implant, left eye. COMPLICATIONS: None. BLOOD LOSS: None. DESCRIPTION OF PROCEDURE: The patient was brought to the operating room and received intravenous sedation. A drop of tetracaine was placed in her left eye. The patient was prepped and draped in the usual sterile fashion for ophthalmic surgery and attention was directed to the left eye where a speculum was placed. A dense white cataract was noted with good pupillary dilation. Omidria was added to the irrigating solution with the anticipation of a long surgery. A paracentesis was created at the 5 o'clock position and 0.1 cc of 1% preservative-free lidocaine was injected into the anterior chamber. This was followed by room air and then VisionBlue dye. DisCoVisc was injected into the anterior chamber to clear out the dye and the air. A continuous curvilinear capsulorrhexis was created with a cystotome and Utrata forceps. This was performed successfully without any tears of the capsule despite the high pressure and white lens. Phacoemulsification was performed in a divide-and- conquer technique to create 4 fragments, which were removed. This required increasing phaco energy and fair amount of time to do so safely. Supplemental DisCoVisc was used to coat the endothelium during this process. Once this aspect of the case was done, inspection for cortical material was undertaken. Minimal residual cortical material was noted and capsular polishing was performed to clean out what was left. DisCoVisc was used to inflate the capsular bag. An AUOOTO 20.0 diopter lens was folded and inserted into the capsular bag. DisCoVisc was removed using irrigation and aspiration. BSS on a cannula was used to hydrate the corneal stoma and to seal the wound. At the end of the case, the pupil was round. The lens was centered and stable. The eye pressure appeared normal and the wound was watertight. The speculum was removed. Topical Maxitrol ointment was placed on the surface of the eye. The eye was closed, patched and shielded and the patient was sent to the recovery room in stable condition with postop instructions and followup appointment given. [id number]/[facility] #: [id number] ERICA
== END 2019-11-11 12:08 | disposition home or self-care (01) ==
LOC: OREAST 09:37
PROVIDERS: ATTEND Ophthalmology
DX: H25.12 Age-related nuclear cataract, left eye (principal); I10 Essential (primary) hypertension; E07.9 Disorder of thyroid, unspecified; D64.9 Anemia, unspecified
CPT/HCPCS: A9270-GY; J1097; J2250; J3010; V2632

== ENCOUNTER 2023-03-21 16:04 | Observation (INO) ==
[2023-03-21 16:27] LABS: ABS Eosinophils 0.4 10^3/uL (0.0-0.5); ABS Lymphocytes 3.4 10^3/uL (1.0-4.8); ABS Neutrophils 4.5 10^3/uL (1.5-7.6); ABS Nucleated RBC 0.02 10^3/ul; Eosinophil % 4.4 %; Hematocrit 40.8 % (35-45); Hemoglobin 13.7 g/dL (11.5-14.3); Lymphocyte % 36.6 %; Mean Corpuscular Hemoglobin 30.4 pg (27-33); Mean Corpuscular Hgb Conc 33.5 g/dL (31-36); Mean Corpuscular Volume 90.8 fL (80-97); Mean Platelet Volume 8.9 fL (7.5-11.2); Nucleated Red Blood Cells % 0.3 /100 WBC (0.0-0.4); Platelet Count 250 10^3/uL (150-450); Red Blood Count 4.49 10^6/uL (3.63-4.92); Red Cell Distribution Width 13.6 % (12-17); White Blood Count 9.3 10^3/uL (3.8-11.8)
[2023-03-21 16:38] LABS: Activated Partial Thrombo Time 35.1 seconds (26.0-38.0); INR 1.05 (0.88-1.18)
[2023-03-21] MEDS ORDERED: Iodixanol (CONTRAST) 320 MG/ML 100 ML SDV IV ONE (16:38)
[2023-03-21 17:04] LABS: Albumin 4.4 g/dL (3.2-5.2); Calcium 9.7 mg/dL (8.6-10.3); Creatinine, Serum 0.78 mg/dL (0.51-0.95); Globulin 4.3 g/dL (2-4); HDL Cholesterol 47.4 mg/dL; Potassium 3.8 mmol/L (3.5-5.0); Total Bilirubin 0.4 mg/dL (0.2-1.0); Total Protein 8.7 g/dL (6.4-8.9); eGFR CKD-EPI 81.7 (>60)
[2023-03-21] MEDS ORDERED: Labetalol IV 5 MG/ML 20 ml VIAL IV PUSH ONE (17:25)
[2023-03-21 18:05] LABS: Urine Appearance Clear; Urine Bilirubin Negative (Negative); Urine Blood Negative (Negative); Urine Color Straw; Urine Glucose Negative (Negative); Urine Ketones Negative (Negative); Urine Nitrite Negative (Negative); Urine Protein Negative (Negative); Urine Specific Gravity 1.017 (1.002-1.030); Urine Urobilinogen Negative (Negative)
[2023-03-21 18:28] LABS: Urine Bacteria Absent (Absent); Urine Red Blood Cell Trace(0-2/hpf) (Absent); Urine Squamous Epithelial Cell Present (Absent); Urine White Blood Cell Trace(0-5/hpf) (Absent)
[2023-03-21] MEDS ORDERED: Labetalol IV 5 MG/ML 20 ml VIAL IV PUSH PRN (18:52)
[2023-03-22 04:48] LABS: ABS Basophils 0.1 10^3/uL (0.0-0.1); ABS Eosinophils 0.5 10^3/uL (0.0-0.5); ABS Lymphocytes 2.5 10^3/uL (1.0-4.8); ABS Monocytes 0.9 10^3/uL (0.0-0.9); ABS Neutrophils 4.4 10^3/uL (1.5-7.6); ABS Nucleated RBC 0.01 10^3/ul; Eosinophil % 5.6 %; Hematocrit 37.3 % (35-45); Hemoglobin 12.8 g/dL (11.5-14.3); Lymphocyte % 30.2 %; Mean Corpuscular Hemoglobin 30.8 pg (27-33); Mean Corpuscular Hgb Conc 34.1 g/dL (31-36); Mean Corpuscular Volume 90.2 fL (80-97); Nucleated Red Blood Cells % 0.1 /100 WBC (0.0-0.4); Platelet Count 225 10^3/uL (150-450); Red Blood Count 4.14 10^6/uL (3.63-4.92); Red Cell Distribution Width 13.6 % (12-17); White Blood Count 8.3 10^3/uL (3.8-11.8)
[2023-03-22 05:08] LABS: Albumin/Globulin Ratio 1.1 (1-3); Calcium 9.1 mg/dL (8.6-10.3); Creatinine, Serum 0.88 mg/dL (0.51-0.95); Globulin 3.7 g/dL (2-4); Magnesium 2.2 mg/dL (1.9-2.7); Potassium 3.7 mmol/L (3.5-5.0); Total Bilirubin 0.4 mg/dL (0.2-1.0); Total Protein 7.7 g/dL (6.4-8.9); eGFR CKD-EPI 70.7 (>60)
[2023-03-22] MEDS ORDERED: Enoxaparin 40 MG/0.4 ML SYR SUBCUT SCH (09:00)
[2023-03-22 17:30] VITALS: BP 189/83
== END 2023-03-22 17:29 | disposition home or self-care (01) ==
LOC: ED 16:04 → EDHOLD 16:04 → SUATTDRO 17:38 → EDHOLD 03-22 17:28
PROVIDERS: ADMIT Internal Medicine; ATTEND Hospitalist